=== PATIENT | male | born 1975 | race African-American/Black ===

== ENCOUNTER 2017-07-05 11:24 | Observation (INO) | payer OTHER ==
[2017-07-05 11:50] LABS: #Lymphocytes 2.7 thou/uL (1.20-3.40); #Monocytes 0.5 thou/uL (0.11-0.59); #Neutrophils 2.7 thou/uL (1.40-6.50); %Basophils 0.8 % (0.0-1.0); %Eosinophils 0.8 % (0.0-10.0); %Lymphocytes 44.9 % (21.0-51.0); %Monocytes 8.8 % (0.0-10.0); Hematocrit 42.5 % (42.0-52.0); Red Blood Cell (RBC) Count 4.94 mill/uL (4.70-6.10)
--- NOTE | 2017-07-05 12:05 | RAD ---
ONE VIEW CHEST: History: Palpitations. Comparison: None. FINDINGS: Normal cardiac silhouette. The pulmonary vessels and hilum are normal. No masses or consolidation. N o pneumothorax or osseous abnormalities. IMPRESSION: No acute cardiopulmonary process. POS: [facility]
[2017-07-05 12:15] LABS: ALT (SGPT) 37 U/L (8-55); AST (SGOT) 33 U/L (5-34); Alkaline Phosphatase 97 U/L (40-150); Anion Gap 15 mmol/L (10-20); BUN (Urea Nitrogen) 18 mg/dL (8.9-20.6); Bilirubin, Total 0.4 mg/dL (0.2-1.2); CK (CPK) 657 U/L (30-200); Calc. Creatinine Clearance 0 mL/min (70-130); Carbon Dioxide 27 mmol/L (22-29); Chloride 102 mmol/L (98-107); Estimated GFR-MDRD 74; Globulin 4.3 g/dL (2.4-3.5); Lipase 36 U/L (8-78); Protein, Total 8.4 g/dL (6.0-8.3)
[2017-07-05 12:17] LABS: Troponin I Less than 0.010 ng/mL (< 0.028)
[2017-07-05 14:35] LABS: Magnesium 1.9 mg/dL (1.6-2.6); Phosphorus 3.1 mg/dL (2.3-4.7)
[2017-07-05 15:32] LABS: Bilirubin Negative (Negative); Blood, Urine Negative (Negative); Glucose, Urine (Dipstick) 500 mg/dL (Negative); Ketone, Urine Negative (Negative); Nitrite Negative (Negative); Protein, Urine (Dipstick) Negative (Neg-Trace); Urobilinogen 0.2 mg/dL (0.2-1.0)
[2017-07-05 15:46] LABS: Amphetamine Not Detected (NotDetected); Methadone Not Detected (NotDetected); Methamphetamine Not Detected (NotDetected)
[2017-07-05 15:59] LABS: Troponin I 0.021 ng/mL (< 0.028)
[2017-07-05] MEDS ORDERED: Ondansetron ODT 4 MG TAB SL PRN (16:41)
[2017-07-05] MEDS ORDERED: Ondansetron HCl/PF 4 MG/2 ML Vial IVP PRN ×2 (16:41→17:03)
[2017-07-05] MEDS ORDERED: Dextrose 5% in Water 1,000 ML IV PRN (17:03)
[2017-07-05] MEDS ORDERED: Calcium Carbonate 500 MG ChewTAB PO PRN (17:03)
[2017-07-05] MEDS ORDERED: Senokot 8.6 MG TAB PO PRN (17:03)
[2017-07-05] MEDS ORDERED: Ondansetron ODT 4 MG TAB PO PRN (17:03)
[2017-07-05] MEDS ORDERED: Nitroglycerin 2% Ointment 1 INCH/1 GM Packet TOP PRN (17:03)
[2017-07-05] MEDS ORDERED: Nitroglycerin 0.4 MG TAB (25 Tab Bottle) PO PRN (17:03)
[2017-07-05] MEDS ORDERED: Dextrose 50% Abboject 50 ML SYRINGE SLOW IVP PRN (17:03)
[2017-07-05] MEDS ORDERED: Insulin Regular 300 UNITS/3 ML VIAL SC PRN ×3 (17:03→21:05)
[2017-07-05] MEDS ORDERED: Acetaminophen 325 MG TAB PO PRN (17:03)
--- NOTE | 2017-07-05 17:30 | HP ---
DATE OF ADMISSION: 07/05/2017. CHIEF COMPLAINT: Palpitations. HISTORY OF PRESENT ILLNESS: Patient is a 41-year-old male with diabetes mellitus type 2, hypertension, and hyperlipidemia who presented to the emergency room with above complaints. Over the past 4 days, patient has intermittent palpitations almost lasting throughout the day. He does not feel any palpitations when he is asleep. The palpitations lasted for a few seconds. He denies any lightheadedness, dizziness , or syncope. No chest pain or diaphoresis reported. No similar complaints in the past. He denies any previous cardiac workup. He denies any use of caffeine or drugs. He does not smoke. He denies any exertional shortness of breath; however, lately, he gets short of breath on moderate to severe exertion. No recent immobilization, travel, fever or chills reported. He denies any thyroid abnormalities. In the emergency room, his initial vital signs showed temperature 98.3, respirations of 15, pulse of 69, blood pressure of 92/69 with O2 saturation of 100% on room air. His EKG showed sinus rhythm with left axis deviation with voltage criteria for left ventricular hypertrophy. QRS duration was 118 milliseconds with DE interval of 176 milliseconds. His chest x-ray was negative for infiltrate. He received aspirin with 1 liter IV fluids in the emergency room. His electrolytes were in normal range. PAST MEDICAL HISTORY: 1. Diabetes mellitus type 2. 2. Hypertension. 3. Hyperlipidemia. PAST SURGICAL HISTORY: Bilateral carpal tunnel surgery in 2014. ALLERGIES: The patient denies any drug allergies. CURRENT HOME MEDICATIONS: The patient does not remember the exact dosages of his medications. However, in 2015, patient was on following medications: 1. Novolin 70-30, 30 units b.i.d. 2. Losartan/HCTZ 100/25. 3. Metoprolol tartrate 100 mg at bedtime. 4. Amlodipine 5 mg at bedtime. SOCIAL HISTORY: Patient currently lives at home with his family. No smoking, alcohol or drug use. FAMILY HISTORY: Positive for high blood pressure and diabetes in his parents. REVIEW OF SYSTEMS: The following complete review of systems was negative, unless otherwise mentioned in the HPI or below: Constitutional: Weight loss or gain, ability to conduct usual activities. Skin: Rash, itching. Eyes: Double vision, pain. ENT/Mouth: Nose bleeding, neck stiffness, pain, tenderness. Cardiovascular: Palpitations, dyspnea on exertion, orthopnea. Respiratory: Shortness of breath, wheezing, cough, hemoptysis, fever or night sweats. Gastrointestinal: Poor appetite, abdominal pain, heartburn, nausea, vomiting, constipation, or diarrhea. Genitourinary: Urgency, frequency, dysuria, nocturia. Musculoskeletal: Pain, swelling. Neurologic/Psychiatric: Anxiety, depression. Allergy/Immunologic: Skin rash, bleeding tendency. PHYSICAL EXAMINATION: VITAL SIGNS: As discussed above. GENERAL: A 41-year-old male, in no apparent distress, appears comfortable. HEENT: Head atraumatic, normocephalic. Sclerae anicteric. Moist mucous membrane, no oral lesion. NECK: Supple. No JVD appreciated. No carotid bruit. LUNGS: Clear to auscultation bilaterally. HEART: S1, S2 present. Regular rate and rhythm. No murmurs, rubs or gallops appreciated. ABDOMEN: Soft, nontender, bowel sounds present. EXTREMITIES: No edema or calf tenderness. NEUROLOGIC: Grossly nonfocal, moves all four extremities. PSYCHIATRY: Alert, awake, oriented x3. SKIN: Warm and dry. LYMPH NODES: No palpable lymph nodes in the neck. PERIPHERAL VASCULAR: Radial pulses palpable bilaterally. MUSCULOSKELETAL: No joint swelling or tenderness. LABORATORY AND X-RAY FINDINGS: 1. CBC showed WBC 6.0 with hemoglobin 14.2 and platelet 250,000. 2. CK was 657. 3. BUN of 18 and creatinine 1.28. 4. Potassium, sodium, magnesium, phosphorus in normal range. 5. Troponins were normal. 6. EKG by my review as discussed above. Chest x-ray by my review as discussed above. IMPRESSION AND PLAN: 1. Intermittent palpitations of 4 days duration. The patient is at high risk for coronary artery disease given his extensive past medical history. We will schedule a stress test. We will also get an echocardiogram and consult Cardiology. The patient will probably need an event monitor at discharge. 2. Diabetes mellitus type 2. We will start him on insulin sliding scale with NPH. 3. Hypertension. We will resume selected home medications. We will hold beta- blockers before the stress test. 4. Hyperlipidemia. The patient is not on any statins. We will get fasting lipid profile. 5. Chronic kidney disease stage 2. Plan of care was discussed with the patient. He stated understanding. HYUN
[2017-07-05] MEDS ORDERED: NPH, Human Insulin Isophane 300 UNIT/3 ML VIAL SC SCH (18:00)
[2017-07-05] MEDS ORDERED: FLU VACC QS2017-18 36 mo. & older 0.5 ML SYRINGE IM ONE (18:30)
[2017-07-05 19:24] LABS: Troponin I 0.018 ng/mL (< 0.028)
[2017-07-05] MEDS ORDERED: Prevnar 13-Val Conj/PF 0.5 ML SYRINGE IM ONE (20:00)
[2017-07-05] MEDS ORDERED: Docusate 100 MG CAP PO SCH (21:00)
[2017-07-06] MEDS ORDERED: Aspirin 325 MG TAB PO SCH (09:00)
[2017-07-06 11:57] VITALS: BP 132/78; TEMP 98
--- NOTE | 2017-07-06 12:18 | DIS ---
DATE OF DISCHARGE: 07/06/2017 DISCHARGE DISPOSITION: Home. FOLLOWUP: Follow up with primary care physician, Dr. Waleska Melgoza in 1 week. Follow up with Dr. Contreras in 3-4 weeks. ALLERGIES: No known drug allergies. The patient was seen and examined on the day of discharge. Denies any new complaints. No chest lucas n, shortness of breath, palpitations reported. DISCHARGE MEDICATIONS: Lopressor 100 mg daily, pravastatin 20 mg at bedtime, amlodipine 5 mg at bed time, losartan/HCTZ 100/25 daily. INPATIENT CONSULTANTS: Cardiology, Dr. Contreras. BRIEF HOSPITAL COURSE: The patient is a 41-year-old male with diabetes mellitus type 2, hypertensio n, and hyperlipidemia who presented to the hospital with palpitations. Please refer to the history and physical dated 07/05/2017 for further details. The patient was admitted to the hospital with a diagnosis of palpitations of unclear etiology. He w as placed on telemetry monitoring that did not show significant arrhythmia except for PVCs. He was evaluated by Cardiology, Dr. Contreras. Echocardiogram was done that showed normal left ventricular ej ection fraction without significant valvular abnormalities. An exercise stress test was performed t hat was negative for reversible ischemia. The patient has been cleared by Cardiology for discharge. Statins were added to his regimen per Cardiology recommendation. His fasting lipid profile showed triglyceride 151 with cholesterol 148, LDL 73, HDL of 45. Repeat CK in 1 week is recommended. His CK on admission was 657, probably due to muscle exertion. His troponins were negative. FINAL DIAGNOSES: 1. Palpitations, probably secondary to premature ventricular contractions. 2. Normal left ventricular ejection fraction. 3. Negative Cardiolite stress test. 4. Diabetes mellitus type 2. 5. Hypertension. 6. Hyperlipidemia. 7. Chronic kidney disease stage 2. 8. Obesity with body mass index of 31.5. Plan of care was discussed with the patient. He stated understanding. Lifestyle modification was emphasized. Risk of statins were discussed with the patient. He stated understanding. He was advised to start statins after 1 week if his CK levels are normal.
--- NOTE | 2017-07-06 12:34 | NM ---
MYOCARDIAL PERFUSION EVALUATION: INDICATION: History of heart palpitations. RADIOPHARMACEUTICAL: 30 mCi of Technetium 99m sestamibi IV with stress and 9 mCi of Technetium 99m sestamibi IV with rest . COMPARISON: None. FINDINGS: When comparing the rest and stress images, no reversible myocardial perfusion defect is evident. Th ere is mild left ventricular dilatation seen on both the rest and stress images. The estimated left ventricular ejection fraction is 52%. There was normal wall motion and thickening. IMPRESSION: 1. No scintigraphic evidence of reversible myocardial ischemia. 2. Mild left ventricular dilatation. 2. Estimated left ventricular ejection fraction of 52%. POS: [facility]
--- NOTE | 2017-07-06 13:19 | CON ---
DATE OF CONSULTATION: 07/06/2017 REASON FOR CONSULTATION: Palpitations, noted to have occasional PVC here in the hospital. HISTORY OF PRESENT ILLNESS: Mr. Kee is a delightful 41-year-old gentleman. The patient states t hat for the last few nights, he has been having a sensation of felt like his heart \\\\"quit skipping; \\\\" it was an uncomfortable sensation occurred at rest. He said at one time it is happening a lot t hat made him feel short of breath. He came here for evaluation and he has been admitted. The patient, otherwise, is brought here for observation. The patient has not had chest pain, pressure, heaviness or squeezing. The patient has a long histor y of diabetes for about 30 years. He has never used tobacco. The patient has a very active physical job. 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 He does not have chest pain or pressure with that activity. He has a history of hypertension as well. He says as far as he knows this has been controlled. No syncope or lightheadedness. PAST MEDICAL HISTORY: 1. Diabetes, he said for 30 years, it says type 2, I suspect it may be type 1. 2. Hypertension. 3. Hyperlipidemia. PAST SURGICAL HISTORY: Bilateral carpal tunnel surgery. ALLERGIES: None known. MEDICATIONS: Listed were, 1. Novolin insulin. 2. Losartan-HCT 100/25. 3. Toprol-XL 100 mg, he has been taking each morning. 4. Amlodipine 5 mg a day. SOCIAL HISTORY: No alcohol or tobacco. FAMILY HISTORY: Positive for hypertension. REVIEW OF SYSTEMS: Constitutional: No significant weight gain or loss. Vision: No changes. Hear ing: No changes. Pulmonary: No cough or wheezing. Gastrointestinal: No nausea, vomiting, diarrh ea. Skin: No rashes. Neurologic: No unilateral weakness or numbness. Psychiatric: No unusual d epression or anxiety. Hematologic: No unusual bruising. Genitourinary: No burning with urination . PHYSICAL EXAMINATION: GENERAL: This is a very pleasant, athletic-appearing 41-year-old -French gentleman, restin g comfortably, in no distress. VITAL SIGNS: Blood pressure 148/84 and pulse 66. EYES: Sclerae nonicteric. MOUTH: Mucous membranes moist. NECK: Supple, no lymphadenopathy. LUNGS: Clear, no wheezing, rales or rhonchi. CARDIAC: Normal S1, normal S2. There is no murmur, rub or gallop. ABDOMEN: Soft, nontender, no hepatosplenomegaly. EXTREMITIES: Warm, dry, no clubbing, cyanosis or edema. HEMATOLOGIC: No unusual bruising. GENITOURINARY: Not examined. SKIN: Warm and dry. Peripheral pulses are intact. PERTINENT LABORATORY AND X-RAY FINDINGS: Troponin levels were all negative. Blood glucose was 401 this morning. Troponin level peak was 0.021, negative being than 0.028. Cholesterol 151, LDL 73. EKG showed sinus rhythm, left ventricular hypertrophy on EKG. Cardiolite stress testing was done. He had good exercise tolerance and reached his target heart rate. There were no EKG changes, no chau st pain. The left ventricle is mildly dilated with rest and stress. Echocardiogram revealed ejecti on fraction of 55%-60%, trace tricuspid insufficiency. The patient did have occasional PVC before and during the treadmill. ASSESSMENT: 1. Palpitations, probably premature ventricular contraction. 2. History of hypertension. 3. History of diabetes. 4. Mild left ventricular dilatation or at least borderline left ventricular enlargement at rest and stress, probably related to hypertension. 5. No evidence of any ischemia on stress testing. PLAN: 1. If he is on metoprolol tartrate, he really should take that 50 mg twice a day or to change to me toprolol succinate. It is not clear, which one he is taking in my mind. He thinks he is going to h ave trouble remembering to take the medicine at bedtime. 2. Amlodipine, continue. 3. Losartan-HCT, continue. 4. If he is not on a statin, that should be recommended. 5. I have asked the patient to come back and see me in the office in about 6 weeks.
== END 2017-07-06 12:45 | disposition home or self-care (01) ==
LOC: ERS 11:24 → 2SW 14:40
PROVIDERS: ADMIT Internal Medicine; ATTEND Internal Medicine
DX: R00.2 Palpitations (principal); E11.22 Type 2 diabetes mellitus with diabetic chronic kidney disease; I12.9 Hypertensive chronic kidney disease with stage 1 through stage 4 chronic kidney disease, or unspecified chronic kidney disease; N18.2 Chronic kidney disease, stage 2 (mild); E78.5 Hyperlipidemia, unspecified; E66.9 Obesity, unspecified; Z68.31 Body mass index [BMI] 31.0-31.9, adult; Z79.899 Other long term (current) drug therapy; Z98.890 Other specified postprocedural states; Z82.49 Family history of ischemic heart disease and other diseases of the circulatory system; Z83.3 Family history of diabetes mellitus
CPT/HCPCS: 36415; 36416; 71010; 78452; 80053; 80061; 80306; 81003; 82553; 83690; 83735; 83880; 84100; 84443; 84484; 85025; 90471; 90670; 90682; 93005; 93017; 93306; 94760; 96360; A9500; G0008; G0009; G0378; J1815; Q2036

== ENCOUNTER 2019-11-15 10:12 | Outpatient (CLI) | payer BC ==
--- NOTE | 2019-11-15 12:46 | RAD ---
LUMBAR SPINE 4 VIEWS: Date: 11/15/2019 Lateral views obtained in neutral, flexion, and extension. INDICATION: Lumbar HNP. Back pain. FINDINGS/IMPRESSION: Lumbar vertebra maintain normal height and alignment. Mild loss of disc space at L4-5. Mild degenerat kayley spurring and mild facet hypertrophy. Slight anterolisthesis L4-5 noted with flexion. POS: [facility]
== END 2019-11-15 10:13 | disposition home or self-care (01) ==
LOC: TBSIIMAG 10:12
PROVIDERS: ATTEND Neurological Surgery
DX: M51.26 Other intervertebral disc displacement, lumbar region (principal); M47.816 Spondylosis without myelopathy or radiculopathy, lumbar region; M43.16 Spondylolisthesis, lumbar region
CPT/HCPCS: 72100

== ENCOUNTER 2020-02-11 06:13 | Outpatient (CLI) | payer BC, OTHER ==
[2020-02-11 10:45] LABS: Hemoglobin 14.1 g/dL (14.0-18.0); Mean Corpuscular HGB CONC 32.6 g/dL (32.0-36.0); Mean Corpuscular Hemoglobin 28.5 pg (27.0-31.0); Mean Corpuscular Volume 87.2 fL (78.0-98.0); Mean Platelet Volume 9.2 fL (7.4-10.4); Platelet Count 227 thou/uL (130-400); RBC Distribution Width 12.1 % (11.5-14.5); Red Blood Cell (RBC) Count 4.94 mill/uL (4.70-6.10); White Blood Cell (WBC) Count 5.7 thou/uL (4.8-10.8)
[2020-02-11 10:49] LABS: INR-International Normal Ratio 0.9; Prothrombin Time 12.6 sec (12.0-14.7)
[2020-02-11 10:50] LABS: PTT 24.9 SEC (22.9-36.1)
[2020-02-11 11:17] LABS: Anion Gap 14 mmol/L (10-20); BUN (Urea Nitrogen) 16 mg/dL (8.9-20.6); Calc. Creatinine Clearance 0 mL/min (70-130); Calcium 9.2 mg/dL (7.8-10.44); Carbon Dioxide 26 mmol/L (22-29); Chloride 103 mmol/L (98-107); Estimated GFR-MDRD 77; Glucose 180 mg/dL (70-105); Potassium 3.8 mmol/L (3.5-5.1); Sodium 139 mmol/L (136-145)
[2020-02-11 17:38] LABS: SARS-CoV-2 MS2 Positive; SARS-CoV-2 N Gene Negative; SARS-CoV-2 S Gene Negative; SARS-CoV-2 orf1ab Negative
--- NOTE | 2020-02-11 21:11 | EKG ---
Test Reason : Blood Pressure : / mmHG Vent. Rate : 071 BPM Atrial Rate : 071 BPM P-R Int : 180 ms QRS Dur : 100 ms QT Int : 356 ms P-R-T Axes : 036 019 -34 degrees QTc Int : 386 ms Normal sinus rhythm T wave abnormality, consider inferior ischemia Abnormal ECG When compared with ECG of 05-JUL-2017 11:29, (Unconfirmed) QRS duration has decreased Inverted T waves have replaced nonspecific T wave abnormality in Inferior leads T wave inversion less evident in Lateral leads Confirmed by Aida WHITING ([id number]) on 02/11/2020 9:11:20 PM Referred By: VARSHA Confirmed By:Aida WHITING
== END 2020-02-11 06:14 | disposition home or self-care (01) ==
LOC: LABBT 06:13
PROVIDERS: ATTEND Neurological Surgery
DX: Z01.818 Encounter for other preprocedural examination (principal); Z11.59 Encounter for screening for other viral diseases; M48.061 Spinal stenosis, lumbar region without neurogenic claudication; M51.26 Other intervertebral disc displacement, lumbar region
CPT/HCPCS: 80048; 85027; 85610; 85730; 87635; 93005; 93010; U0003

== ENCOUNTER 2020-02-14 05:40 | Observation (INO) | payer BC ==
[2020-02-14] MEDS ORDERED: EPINEPHrine 1 MG/ML AMP ONE (06:10)
[2020-02-14] MEDS ORDERED: Bupivacaine PF 0.5% 30 ML VIAL ONE (06:10)
[2020-02-14] MEDS ORDERED: Thrombin 5000 UNITS/5 ML VIAL ONE (06:10)
[2020-02-14] MEDS ORDERED: Insulin Regular 300 UNITS/3 ML VIAL ONE (06:41)
[2020-02-14] MEDS ORDERED: Fentanyl 100 MCG/2 ML VIAL ONE ×4 (06:42→12:43)
[2020-02-14] MEDS ORDERED: Milk Of Magnesia 30 ML UDCUP PO PRN (11:31)
[2020-02-14] MEDS ORDERED: Ondansetron PF 4 MG/2 ML Vial IVP PRN (11:31)
[2020-02-14] MEDS ORDERED: Acetaminophen 325 MG TAB PO PRN (11:31)
[2020-02-14] MEDS ORDERED: diphenhydrAMINE 25 MG CAP PO PRN (11:31)
[2020-02-14] MEDS ORDERED: Promethazine 25 MG TAB PO PRN (11:31)
[2020-02-14] MEDS ORDERED: Mag-Al 1200 mg/1200 mg/30 ML UDCUP PO PRN (11:31)
[2020-02-14] MEDS ORDERED: Promethazine HCl 25 MG/ML VIAL SLOW IVP PRN (11:39)
[2020-02-14] MEDS ORDERED: Ondansetron HCl/PF 4 MG/2 ML Vial IVP PRN (11:39)
[2020-02-14] MEDS ORDERED: Promethazine HCl 25 MG/ML VIAL IM PRN (11:39)
[2020-02-14] MEDS ORDERED: Scopolamine 1.5 mg/72 hour Patch TD SCH ×2 (11:45→14:00)
[2020-02-14] MEDS ORDERED: Dextrose 5% in Water 1,000 ML IV PRN (11:57)
[2020-02-14] MEDS ORDERED: Dextrose 50% Abboject 50 ML SYRINGE SLOW IVP PRN (11:57)
[2020-02-14] MEDS ORDERED: Tamsulosin HCl 0.4 MG CAP ONE (12:01)
[2020-02-14 12:57] VITALS: BMI 35.2
[2020-02-14] MEDS ORDERED: Lidocaine 1% PF 5 ML VIAL ONE (13:24)
[2020-02-14] MEDS ORDERED: PROPOFOL 200 MG/20 ML VIAL ONE (13:24)
[2020-02-14] MEDS ORDERED: PHENYLEPHRINE-NS 100 MCG/ML 10 ML SYRINGE ONE (13:24)
[2020-02-14] MEDS ORDERED: EPHEDRINE 25 MG/5 ML SYRINGE ONE (13:24)
[2020-02-14] MEDS ORDERED: Dexamethasone 20 MG/5 ML VIAL ONE (13:24)
[2020-02-14] MEDS ORDERED: Glycopyrrolate 0.2 MG/ML 5 ML SYRINGE ONE (13:24)
[2020-02-14] MEDS ORDERED: Ondansetron PF 4 MG/2 ML Vial ONE (13:24)
[2020-02-14] MEDS ORDERED: Rocuronium Bromide 10 MG/ML (10ML VIAL) ONE (13:24)
--- NOTE | 2020-02-14 14:46 | PDOC.HOSPP ---
- Subjective Encounter Date: 02/14/20 Encounter Time: 14:00 Subjective: Patient seen and examined for medical mgnt. No CP. Pain controlled. No new complaints. - Objective Vital Signs & Weight: Vital Signs (12 hours) Temp Pulse Resp BP Pulse Ox 02/14/20 13:50 96.8 F L 76 20 137/84 94 L Weight Weight 253 lb I&O: 02/13/20 02/14/20 02/15/20 06:59 06:59 06:59 Intake Total 2350 Output Total 100 Balance 2250 Additional Labs: Accuchecks 02/14/20 02/14/20 02/14/20 12:37 12:00 11:43 POC Glucose 200 H 162 H 154 H 02/14/20 02/14/20 02/14/20 11:12 10:46 10:06 POC Glucose 167 H 203 H 173 H 02/14/20 02/14/20 02/14/20 09:40 09:04 08:45 POC Glucose 137 H 124 H 149 H 02/14/20 02/14/20 02/14/20 08:19 07:41 07:13 POC Glucose 367 H 228 H 343 H 02/14/20 06:36 POC Glucose 331 H Laboratory Tests 02/11/20 02/11/20 09:55 09:55 Hgb 14.1 Hct 43.1 Sodium 139 Potassium 3.8 BUN 16 Creatinine 1.23 EKG Reviewed by me: Yes (SR - unchanged from EKG from 3 days ago) Hospitalist ROS - Review of Systems Respiratory: denies: cough, dry, shortness of breath, hemoptysis, SOB with excertion, pleuritic pain, sputum, wheezing, other Cardiovascular: denies: chest pain, palpitations, orthopnea, paroxysmal noc. dyspnea, edema, light headedness, other Gastrointestinal: denies: nausea, vomiting, abdominal pain, diarrhea, constipation, melena, hematochezia, other - Exam General Appearance: NAD Heart: RRR, no gallops Respiratory: no wheezes, no ronchi Gastrointestinal: non-tender, non-distended, normal bowel sounds Extremities: no cyanosis, no clubbing Psychiatric: normal affect, A&O x 3 Hosp A/P - Plan DVT proph w/SCDs DM2 HTN HLD Obesity BMI 35.3 CKD 2 PLAN: Add moderate sliding scale Hold 70/30 Insulin Start NPH 20 units BID Diabetic diet Cont Losartan Cont HCTZ Cont Metoprolol Will follow. Thank you for this consultation.
[2020-02-14] MEDS: HYDROcodone/Acetaminophen 7.5/325 mg Tablet PO PRN ×2 (15:34→22:00)
[2020-02-14] MEDS: tiZANidine HCl 4 MG TAB PO PRN (15:34)
[2020-02-14] MEDS: Sodium Chloride 0.9% 1,000 ML IV SCH ×2 (15:35→23:05)
[2020-02-14] MEDS: CEFAZOLIN 2 GM in Premix Bag 1 BAG IVPB SCH ×2 (15:35→21:56)
--- NOTE | 2020-02-14 15:37 | OP ---
DATE OF PROCEDURE: 02/14/2020 MARKETING LIAISON: Zeke Corea PA-C PREOPERATIVE INDICATION: Treat pain, prevent neurological deterioration. PREOPERATIVE DIAGNOSIS: Multilevel lumbar stenosis on top of congenital stenosis, with intervertebral disk disease at L4-5 and L5-S1 and stenosis at L3-4. POSTOPERATIVE DIAGNOSIS: Multilevel lumbar stenosis on top of congenital stenosis, with intervertebral disk disease at L4-5 and L5-S1 and stenosis at L3-4. PROCEDURES PERFORMED: 1. Decompressive laminectomy, medial facetectomy, foraminotomy at L3-4, L4-5, L5-S1. 2. Operative microscope. 3. Right-sided microdiskectomy at L4-5 and L5-S1. PREOPERATIVE MEDICATIONS: Ancef 2 g IV. DRAIN NUMBER: Zero. DRAIN TYPE: None DESCRIPTION OF PROCEDURE: The patient was brought to the operating room. General endotracheal anesthesia was induced. The patient was positioned prone on the operating table with his chest and hips supported by gel-filled chest rolls. A lateral fluoro radiograph was used to plan our incision. The lumbar skin was sterilely prepped and draped. We opened with a 10-blade knife and we controlled bleeding with bipolar and monopolar cautery. We used monopolar cautery to dissect through subcutaneous tissues to thoracodorsal fascia. We incised the fascia in the midline and we reflected the paraspinal muscles off the spinous process and lamina of L3, L4, L5, and S1. A lateral fluoro radiograph confirmed the levels upon which we were operating. We then used Adson and Leksell rongeurs to remove the spinous processes from S1-L3. We used Kerrison rongeur to fashion a laminectomy down the midline. We widened our laminectomy defect by performing medial facetectomies and foraminotomies. We made sure that the Luis ball probe could pass through the lateral recess and out the foramen with each of the nerve roots from L3 all the way to S1. We then turned our attention to the intervertebral disk disease, which was stretching the right-sided L5 and S1 nerve roots. We brought the operative microscope into the field. Under microscopic magnification using microsurgical techniques, we carefully retracted the thecal sac medially at the L4-5 interspace from the right side toward the midline. There was an intervertebral disk herniation on top of a protrusion there. We removed disk fragments by sweeping them laterally with a blunt hook. We reduced some disk back into the interspace with pushing curettes and with pituitary rongeurs, we removed disk material until the thecal sac and nerve root were no longer stretched. We irrigated with bacitracin irrigation and turned our attention to L5-S1. In a similar fashion, we found a disk protrusion at the interspace. We removed disk contents until the S1 nerve root was no longer stretched and then we irrigated with bacitracin irrigation. We controlled bleeding with gentle bipolar cautery. We waxed the bone edges. We irrigated copiously with bacitracin irrigation. We infused local anesthetic in the paraspinal muscles. We closed the wound in anatomic layers after treating with vancomycin powder. A dry sterile dressing was applied. This was a clean case, no contamination. Job ID: [id number]
[2020-02-14] MEDS: Insulin Regular 300 UNITS/3 ML VIAL SC PRN ×2 (17:31→22:48)
[2020-02-14] MEDS: Morphine 2 MG/ML SYRINGE SLOW IVP PRN (18:17)
[2020-02-14] MEDS ORDERED: NPH, Human Insulin Isophane 300 UNIT/3 ML VIAL SC SCH (21:00)
[2020-02-14] MEDS ORDERED: Amlodipine 5 MG TAB PO SCH ×2 (21:00)
[2020-02-14] MEDS ORDERED: [UNRECOGNIZED DRUG - OTHER] SQ SCH (21:00)
[2020-02-14] MEDS ORDERED: INSULIN ASPART PROT SQ SCH (21:00)
[2020-02-14] MEDS ORDERED: INSULN ASP SQ SCH (21:00)
[2020-02-15] MEDS: Insulin Regular 300 UNITS/3 ML VIAL SC PRN ×4 (00:42→12:40)
[2020-02-15] MEDS: Morphine 2 MG/ML SYRINGE SLOW IVP PRN (00:43)
[2020-02-15] MEDS: traMADol HCl 50 MG TAB PO PRN ×2 (03:05→09:47)
[2020-02-15] MEDS: tiZANidine HCl 4 MG TAB PO PRN ×2 (03:05→09:47)
[2020-02-15] MEDS ORDERED: NPH, Human Insulin Isophane 300 UNIT/3 ML VIAL SC SCH ×3 (05:35→21:00)
[2020-02-15] MEDS ORDERED: Tamsulosin HCl 0.4 MG CAP PO SCH (06:00)
--- NOTE | 2020-02-15 07:50 | PRG ---
DATE OF SERVICE: 02/15/2020 Ryan Kee is one day out from a decompressive laminectomy of lumbar spine as well as two levels of microdiskectomy. Although his legs feel better he feels a little bit under the weather and has decreased energy. His blood sugars were up and uncontrolled before surgery, so he was kept overnight in the hospital. Blood sugars have not been below 248 at all. Overnight, I do not see any fevers recorded. Blood pressures have been in the 100s to 130s. There are no new deficits in the lower extremities. This morning his glucose was 248. Insulin was just administered before I came in there. The plan is to keep Mr. Kee until his diabetes is under control. All depend on the excellent assistance of the inpatient medical service to adjust his diabetic regimen in this period of recovery from surgery. He may need a few extra units of long-acting or short-acting insulin during the week to two weeks after his operation. Once the plan is made, and the sugar is under control, then he can be discharged. He understands he needs to walk and he has already been out of bed this morning walking in the hallway. Job ID: [id number] [facility]
[2020-02-15] MEDS ORDERED: Losartan 25 MG TAB PO SCH ×2 (09:00)
[2020-02-15] MEDS ORDERED: Metoprolol Tartrate 100 MG TAB PO SCH ×2 (09:00)
[2020-02-15] MEDS ORDERED: Hydrochlorothiazide 25 MG TAB PO SCH ×2 (09:00)
[2020-02-15] MEDS: Sodium Chloride 0.9% 1,000 ML IV SCH ×2 (09:45→15:49)
[2020-02-15 15:39] VITALS: TEMP 98.3
[2020-02-15] MEDS ORDERED: HumuLIN 70/30 (300 UNITS/3 ML VIAL) SC SCH (17:00)
[2020-02-15 17:29] VITALS: BP 142/78
--- NOTE | 2020-02-15 17:51 | PDOC.HOSPP ---
- Subjective Encounter Date: 02/15/20 Encounter Time: 14:00 Subjective: Patient seen and examined for med mngt. Pain controlled. No CP. No new complaints. No overnight events - Objective Vital Signs & Weight: Vital Signs (12 hours) Temp Pulse Resp BP Pulse Ox 02/15/20 15:40 74 142/78 H 96 02/15/20 15:25 98.3 F 79 16 170/98 H 97 02/15/20 11:30 95 02/15/20 11:28 99.3 F 78 16 136/81 98 02/15/20 07:16 98.2 F 75 16 133/79 96 Weight Weight 253 lb I&O: 02/14/20 02/15/20 02/16/20 06:59 06:59 06:59 Intake Total 4010 800 Output Total 575 1000 Balance 3435 -200 Additional Labs: Accuchecks 02/15/20 02/15/20 02/15/20 15:25 11:28 08:13 POC Glucose 192 H 193 H 232 H 02/15/20 02/15/20 02/14/20 04:29 00:14 21:03 POC Glucose 248 H 341 H 304 H Hospitalist ROS - Review of Systems Respiratory: denies: cough, dry, shortness of breath, hemoptysis, SOB with excertion, pleuritic pain, sputum, wheezing, other Cardiovascular: denies: chest pain, palpitations, orthopnea, paroxysmal noc. dyspnea, edema, light headedness, other - Medication Medications: Active Medications Generic Name Dose Route Start Last Admin Trade Name Freq PRN Reason Stop Dose Admin Hydrocodone Bitart/Acetaminophen 1 tab 02/14/20 11:31 02/14/20 22:00 [place] 7.5/325 PO 1 tab Q4H PRN Administration Mild Pain (1-3) Amlodipine Besylate 5 mg 02/14/20 21:00 02/14/20 21:18 Norvasc PO 5 mg HS YURI Administration Hydrochlorothiazide 25 mg 02/15/20 09:00 02/15/20 09:49 Hydrochlorothiazide PO 25 mg QAM YURI Administration Sodium Chloride 1,000 mls @ 100 mls/hr 02/14/20 11:45 02/15/20 15:49 Normal Saline 0.9% IV Not Given .Q10H YURI Insulin Human Isoph/Insulin Regular 40 units 02/15/20 17:00 02/15/20 17:17 Humulin 70/30 SC Not Given [facility] Insulin Human Regular 0 units 02/14/20 11:57 02/15/20 12:40 Humulin R SC 2 unit .MODERATE SLIDING SC PRN Administration Moderate Correctional Scale Insulin Human Regular 0 units 02/14/20 11:57 02/15/20 00:42 Humulin R SC 4 unit .BEDTIME SLIDING SC PRN Administration Bedtime Correctional Scale Losartan Potassium 100 mg 02/15/20 09:00 02/15/20 09:49 Cozaar PO 100 mg DAILY [facility] Administration Metoprolol Tartrate 100 mg 02/15/20 09:00 02/15/20 09:50 Lopressor PO 100 mg DAILY [facility] Administration Morphine Sulfate 2 mg 02/14/20 11:31 02/15/20 00:43 Morphine SLOW IVP 2 mg Q1H PRN Administration Moderate Breakthrough Pain Ondansetron HCl 4 mg 02/14/20 11:31 02/15/20 02:08 Zofran IVP 4 mg DAILY PRN Administration Nausea/Vomiting Pantoprazole Sodium 40 mg 02/15/20 09:00 02/15/20 09:50 Protonix PO 40 mg DAILY [facility] Administration Scopolamine 1.5 mg 02/14/20 14:00 02/14/20 15:35 Transderm Scop TD 1.5 mg Q3D [facility] Administration Tamsulosin HCl 0.4 mg 02/15/20 06:00 02/15/20 05:31 Flomax PO 0.4 mg 0600 [facility] Administration Tizanidine HCl 4 mg 02/14/20 11:31 02/15/20 09:47 Zanaflex PO 4 mg Q6H PRN Administration Muscle Spasm Tramadol HCl 50 mg 02/14/20 11:31 02/15/20 09:47 Ultram PO 50 mg Q6H PRN Administration Mild Pain (1-3) - Exam General Appearance: NAD Heart: RRR, no gallops Respiratory: no wheezes, no rales Gastrointestinal: soft, non-tender, non-distended Extremities: no cyanosis, no clubbing Hosp A/P - Plan DVT proph w/SCDs DM2 - better controlled HTN HLD Obesity BMI 35.3 CKD 2 PLAN: Cont moderate sliding scale Resume 70/30 Insulin 40 units BID DC NPH ContDiabetic diet Cont Losartan, HCTZ and Metoprolol Will follow PRN.
== END 2020-02-15 18:48 | disposition home or self-care (01) ==
LOC: SDC 05:40 → SJJU 11:38 → INTOOBSV 11:38
PROVIDERS: ADMIT Neurological Surgery; ATTEND Neurological Surgery
PROC: 01NB0ZZ Release Lumbar Nerve, Open Approach (ICD-10-PCS; principal; 2020-02-14)
PROC: 0SB20ZZ Excision of Lumbar Vertebral Disc, Open Approach (ICD-10-PCS; 2020-02-14)
DX: M48.061 Spinal stenosis, lumbar region without neurogenic claudication (principal); M51.16 Intervertebral disc disorders with radiculopathy, lumbar region; I12.9 Hypertensive chronic kidney disease with stage 1 through stage 4 chronic kidney disease, or unspecified chronic kidney disease; E11.22 Type 2 diabetes mellitus with diabetic chronic kidney disease; N18.2 Chronic kidney disease, stage 2 (mild); E78.5 Hyperlipidemia, unspecified; E66.9 Obesity, unspecified; Z68.35 Body mass index [BMI] 35.0-35.9, adult; Z79.4 Long term (current) use of insulin; Z79.899 Other long term (current) drug therapy
CPT/HCPCS: 36416; 76000; 96374; 96375; 96376; G0378; J0171; J0690; J1100; J1815; J2001; J2270; J2405; J2704; J3010; J3370; S0020